=== PATIENT | female | born 1995 | race Hispanic/Latino ===

== ENCOUNTER 2021-03-05 17:24 | Emergency (ER) | payer OTHER ==
[~2021-03-05] VITALS: Ht 160 cm; Wt 114.3 kg
[2021-03-05 17:45] LABS: BASOPHILS % (AUTO) 0.7 % (0.0-5.0); EOSINOPHILS % (AUTO) 2.4 % (0.0-8.0); HEMATOCRIT 42.6 % (36-48); LYMPHOCYTES % (AUTO) 31.2 % (21.0-51.0); MEAN CORPUSCULAR HEMOGLOBIN 27.3 pg (27.0-33.0); MEAN CORPUSCULAR HGB CONC 33.3 g/dL (32.0-36.0); MEAN CORPUSCULAR VOLUME 81.8 fL (79-99); MONOCYTES % (AUTO) 6.1 % (3.0-13.0); NEUTROPHILS % (AUTO) 59.2 % (40.0-77.0); PLATELET COUNT (AUTO) 282 K/uL (130-400); RED BLOOD CELL COUNT(AUTO) 5.21 MIL/uL (4.00-5.50); RED CELL DISTRIBUTION WIDTH 13.4 % (11.0-15.5)
[2021-03-05 17:59] LABS: ALBUMIN 3.6 g/dL (3.5-5.0); BILIRUBIN,TOTAL 0.5 mg/dL (0.2-1.0); CREATININE 0.8 mg/dL (0.5-1.5); POTASSIUM 3.6 mmol/L (3.5-5.1); TOTAL PROTEIN, SERUM 8.2 g/dL (6.0-8.3)
[2021-03-05 20:21] LABS: APPEARANCE,URINE Cloudy (CLEAR); BILIRUBIN,URINE Negative (NEGATIVE); COLOR,URINE Dark Yellow (YELLOW); GLUCOSE, URINE (UA) Negative (NEGATIVE); KETONES,URINE Negative (NEGATIVE); LEUKOCYTE ESTERASE ,URINE Negative (NEGATIVE); NITRATE,URINE Negative (NEGATIVE); OCCULT BLOOD,URINE Negative (NEGATIVE); PH,URINE 5.5 (5.0-8.0); PROTEIN,URINE Negative (NEGATIVE)
[2021-03-05 20:29] LABS: HCG,QUAL RESULT NEGATIVE (NEGATIVE)
[2021-03-05 20:31] LABS: BACTERIA,URINE Few /HPF (None Seen); RBC,URINE 0-1 /HPF (0-1)
[2021-03-05 20:32] LABS: MUCUS,URINE Moderate LPF (None Seen); SQUAMOUS EPITHELIAL CELL,UR Moderate /HPF (0-2)
[2021-03-05] MEDS ORDERED: HYDROCODONE/ACETAMINOPHEN 5/325 MG TAB PO ONE (21:00)
[2021-03-05] MEDS ORDERED: KETOROLAC 30MG VIAL (30MG/ML) IM ONE (21:00)
[2021-03-05 22:00] VITALS: BP 128/72
[2021-03-05] MEDS ORDERED: ACET1TAB25 PO (22:13)
== END 2021-03-05 22:37 | disposition home or self-care (01) ==
LOC: EDH 17:24
DX: N23 Unspecified renal colic (principal); R51.9 Headache, unspecified; J45.909 Unspecified asthma, uncomplicated
CPT/HCPCS: 36415; 74176; 80053; 81001; 81025; 82150; 83690; 85025; 96372; 99284; J1885

== ENCOUNTER 2021-10-28 17:33 | Emergency (ER) | payer OTHER ==
[~2021-10-28] VITALS: Ht 160 cm; Wt 111.1 kg
[~2021-10-28 17:33] MED LIST: ACET-2079 PO
[2021-10-28] MEDS ORDERED: AMOX1TAB16 PO (17:50)
[2021-10-28] MEDS ORDERED: IBUP-2070 PO (17:50)
[2021-10-28] MEDS ORDERED: IBUPROFEN 600 MG TABLET PO ONE (18:00)
[2021-10-28] MEDS ORDERED: AMOX/CLAV 875/125MG TAB PO ONE (18:00)
[2021-10-28 18:16] VITALS: BP 130/65
== END 2021-10-28 18:31 | disposition home or self-care (01) ==
LOC: EDH 17:33
DX: H66.92 Otitis media, unspecified, left ear (principal); J45.909 Unspecified asthma, uncomplicated

== ENCOUNTER 2021-11-04 15:36 | Emergency (ER) | payer OTHER ==
[~2021-11-04] VITALS: Ht 160 cm; Wt 111.1 kg
[~2021-11-04 15:36] MED LIST changes: +AMOX1TAB16 PO; +IBUP-2070 PO
[2021-11-04] MEDS ORDERED: CEFTRIAXONE 1G VIAL IM ONE (16:00)
[2021-11-04] MEDS ORDERED: NEOMYCIN/POLYMYXIN/HC OTIC SUSP 10ML BOTTLE AS SCH (16:00)
[2021-11-04] MEDS ORDERED: ACETAMINOPHEN WITH CODEINE 1 TAB TAB PO ONE (16:00)
[2021-11-04] MEDS ORDERED: LIDOCAINE HCL 1% 10 ML VIAL ONE (16:07)
[2021-11-04] MEDS ORDERED: ACET-2079 PO (16:08)
[2021-11-04] MEDS ORDERED: CLAR-44 PO (16:08)
[2021-11-04 16:22] VITALS: BP 121/78
== END 2021-11-04 16:20 | disposition home or self-care (01) ==
LOC: EDH 15:36
DX: H66.002 Acute suppurative otitis media without spontaneous rupture of ear drum, left ear (principal); J45.909 Unspecified asthma, uncomplicated; E66.01 Morbid (severe) obesity due to excess calories; Z68.41 Body mass index [BMI] 40.0-44.9, adult; Z79.1 Long term (current) use of non-steroidal anti-inflammatories (NSAID)
CPT/HCPCS: 99283; 82948; 96372; J0696; J3490

== ENCOUNTER 2022-02-14 22:07 | Emergency (ER) | payer OTHER ==
[~2022-02-14] VITALS: Ht 160 cm; Wt 111.1 kg
[~2022-02-14 22:07] MED LIST changes: +CLAR-44 PO
[2022-02-14] MEDS ORDERED: ACETAMINOPHEN 500 MG TABLET ONE (23:23)
[2022-02-14] MEDS ORDERED: IBUPROFEN 600 MG TABLET ONE (23:23)
[2022-02-14] MEDS ORDERED: IBUPROFEN 600 MG TABLET PO ONE (23:30)
[2022-02-14] MEDS ORDERED: ACETAMINOPHEN 500 MG TABLET PO ONE (23:30)
[2022-02-14 23:50] VITALS: BP 124/77
== END 2022-02-15 00:07 | disposition home or self-care (01) ==
LOC: EDH 22:07
DX: B34.9 Viral infection, unspecified (principal); J45.909 Unspecified asthma, uncomplicated; Z20.822 Contact with and (suspected) exposure to COVID-19; E66.9 Obesity, unspecified; Z68.41 Body mass index [BMI] 40.0-44.9, adult; Z79.1 Long term (current) use of non-steroidal anti-inflammatories (NSAID)
CPT/HCPCS: 99284; 71045; 87635; 87880; 87804 ×2; 81025; C9803

== ENCOUNTER 2023-03-04 08:22 | Emergency (ER) | payer OTHER ==
[~2023-03-04] VITALS: Ht 160 cm; Wt 111.6 kg
[2023-03-04 08:59] LABS: RAPID GROUP A STREP negative (NEGATIVE)
[2023-03-04] MEDS ORDERED: DiphenhydrAMINE HCL 50 MG/ML VIAL IV ONE (09:00)
[2023-03-04] MEDS ORDERED: KETOROLAC 30MG VIAL (30MG/ML) IVP ONE (09:00)
[2023-03-04] MEDS ORDERED: PROCHLORPERAZINE 10MG/2ML INJ IV ONE (09:00)
[2023-03-04] MEDS ORDERED: LACTATED RINGERS 1000ML 1,000 ML IV ONE (09:00)
[2023-03-04 09:02] LABS: SARS-CoV-2, RNA, NAAT NEGATIVE SARS CoV-2 (NEGATIVE)
[2023-03-04 09:07] LABS: INFLUENZA TYPE A Negative For Type A (NEGATIVE)
[2023-03-04 09:45] LABS: INFLUENZA TYPE B Positive For Type B (NEGATIVE)
[2023-03-04] MEDS ORDERED: DIPHENHYDRAMINE HCL 25 MG CAPSULE PO ONE (10:30)
[2023-03-04] MEDS ORDERED: METOCLOPRAMIDE 10 MG TABLET PO ONE (10:30)
[2023-03-04] MEDS ORDERED: KETOROLAC 30MG VIAL (30MG/ML) IM ONE (10:30)
[2023-03-04] MEDS ORDERED: OSEL75 PO (10:31)
[2023-03-04] MEDS ORDERED: IBUP-2070 PO (10:31)
[2023-03-04] MEDS ORDERED: METO5 PO (10:31)
[2023-03-04 11:09] VITALS: BP 137/78; PULSE 78; RESP 16; O2SAT 97
== END 2023-03-04 11:09 | disposition home or self-care (01) ==
LOC: EDH 08:22
DX: J10.1 Influenza due to other identified influenza virus with other respiratory manifestations (principal); G43.909 Migraine, unspecified, not intractable, without status migrainosus; J45.909 Unspecified asthma, uncomplicated; E66.9 Obesity, unspecified; Z20.822 Contact with and (suspected) exposure to COVID-19; Z79.899 Other long term (current) drug therapy; Z98.890 Other specified postprocedural states
CPT/HCPCS: 99284; 96374; 96375; 87635; 96361; 87880; 87804 ×2; C9803; J7120; J1200; J0780; J1885

== ENCOUNTER 2024-06-23 22:47 | Emergency (ER) | payer BC ==
[~2024-06-23] VITALS: Ht 160 cm; Wt 122.9 kg
[~2024-06-23 22:47] MED LIST changes: +METO5 PO; +OSEL75 PO
[2024-06-24] MEDS: 0.9%NACL 1000ML 1,000 ML IV ONE (00:17)
[2024-06-24] MEDS: DiphenhydrAMINE HCL 50 MG/ML VIAL IV ONE (00:17)
[2024-06-24 00:22] LABS: BASOPHILS # (AUTO) 0.06 K/uL (0.00-0.20); BASOPHILS % (AUTO) 0.5 % (0.0-5.0); EOSINOPHILS # (AUTO) 0.06 K/uL (0.00-0.70); EOSINOPHILS % (AUTO) 0.5 % (0.0-8.0); HEMATOCRIT 37.8 % (36-48); IMMATURE GRANULOCYTE ABSOLUTE 0.02 K/uL (0-1); LYMPHOCYTES # (AUTO) 3.8 K/uL (1.0-4.8); LYMPHOCYTES % (AUTO) 32.9 % (21.0-51.0); MEAN CORPUSCULAR HGB CONC 33.6 g/dL (32.0-36.0); MEAN CORPUSCULAR VOLUME 80.4 fL (79-99); MONOCYTES # (AUTO) 0.6 K/uL (0.1-1.0); NEUTROPHILS % (AUTO) 60.9 % (40.0-77.0); PLATELET COUNT (AUTO) 288 K/uL (130-400); RED CELL DISTRIBUTION WIDTH 14.3 % (11.0-15.5); WHITE BLOOD COUNT (AUTO) 11.4 K/uL (4.8-10.8)
[2024-06-24 00:24] VITALS: BP 146/91; PULSE 83; RESP 20; TEMP 98.6; O2SAT 100
[2024-06-24 00:55] LABS: CREATININE 0.9 mg/dL (0.5-1.0); POTASSIUM 3.4 mmol/L (3.5-5.1)
--- NOTE | 2024-06-24 01:15 | ERN ---
General Chief Complaint: Numbness Stated Complaint: C/O NUMBNESS W/HEAVINESS TO LEFT ARM Time Seen by MD: 23:48 Time Seen by Midlevel: 23:48 Source: patient History of Present Illness Initial Comments Patient is a 29-year-old female with no significant past medical history presenting to the emergency department with chest pain that was followed by numbness and heaviness to the left arm. Patient states her symptoms started at 7:00 p.m. today. 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 She states she was told that she was going to be killed. Her symptoms developed shortly after. Police report was filed. On arrival with the patient states her symptoms improved but wanted further evaluation. Allergies: Coded Allergies: No Known Drug Allergies (Unverified Allergy, Unknown, 03/05/21) Home Meds Active Scripts Metoclopramide HCl (Reglan) 5 Mg Tab, 5 MG PO Q6HPRN PRN for NAUSEA/VOMITING, #20 TAB Prov:ANIKET LOPEZ MD 03/04/23 Ibuprofen (Ibuprofen) 600 Mg Tablet, 600 MG PO Q6H PRN for PAIN, #20 TAB Prov:ANIKET LOPEZ MD 03/04/23 Oseltamivir Phosphate (Tamiflu) 75 Mg Cap, 75 MG PO BID for 5 Days, #10 CAP Prov:ANIKET LOPEZ MD 03/04/23 Acetaminophen with Codeine (Acetaminophen-Cod #3 Tablet) 1 Each Tablet, 1-2 TAB PO Q6H PRN for left otitis media/otalgia, #20 TAB Prov:GENIE SQUIRES 11/04/21 Clarithromycin (Clarithromycin) 500 Mg Tablet, 500 MG PO BID for 10 Days, #20 TAB Prov:GENIE SQUIRES 11/04/21 Ibuprofen (Ibuprofen) 600 Mg Tablet, 600 MG PO Q6H PRN for PAIN, #14 TAB Prov:DEREK JASMINE 10/28/21 Amoxicillin/Potassium Clav (Amox Tr-K Clv 875-125 mg Tab) 1 Each Tablet, 1 EACH PO BID, #14 TAB Prov:DEREK JASMINE 10/28/21 Acetaminophen with Codeine (Acetaminophen-Cod #3 Tablet) 1 Each Tablet, 1 EACH PO QID, #20 TAB Prov:SUSHMA HAMMOND MD 03/05/21 Past Medical History Past Medical History: No Pertinent History Medical History Other: Obesity Past Surgical History: Unknown Surgical History Other: D & C Family History Family History: Negative Social History Social History: Negative ROS Dictation CONSTITUTIONAL: Negative except for HPI HEAD/FACE: Negative except for HPI EENT: Negative except for HPI RESPIRATORY: Negative except for HPI GASTROINTESTINAL/ABDOMINAL: Negative except for HPI GENITOURINARY: Negative except for HPI MUSCULOSKELETAL: Negative except for HPI INTEGUMENTARY: Negative except for HPI NEUROLOGICAL/PSYCH: Negative except for HPI HEMATOLOGIC/LYMPHATIC: Negative except for HPI All Systems Negative, Except as noted above. 13 point review of systems assessed and all negative except for above. Physical Exam Physical Exam Dictation Vital Signs reviewed General Appearance: Alert, oriented x 3, no acute distress, well developed, nourished. Head and Face: non-traumatic. Eyes: PERRL, pink conjunctivas, eyelid no trauma, anterior chamber with arcus senilis. Ears: Pinnas intact and no signs of trauma or erythema ear canals clear and no discharge TM no erythema Nose: No discharge, no bleeding. Oropharynx: Mouth normal, tongue pink, pharynx clear,no erythema, tonsils no exudates, no abscesses noted, mucous membrane moist Neck: Supple, non-tender, no thyromegaly, no masses, no JVD, no bruits Breast:Deferred Chest:No tenderness, no crepitus, no paradoxical movement, no retractions Lungs:Clear, well-ventilated, symmetric, no rales, no wheezing, no rhonchi, no stridor, good breath sounds bilaterally Heart: Regular rate, regular rhythm, no murmur, no gallops Vascular: no peripheral edema, Abdomen: Soft, positive bowel sounds, nondistended, no guarding, nontender, no rebound, no masses no hepatomegaly, no splenomegaly, no Aguilar's sign, no hernias. Rectal: Deferred Genital: Deferred Neurological: Normal speech, motor function intact, sensory function intact Musculoskeletal: Neck nontender, full range of motion, back nontender, full range of motion, Extremities: nontender, full range of motion Skin: Color pink, dry, no turgor, no rash, no lacerations, no abrasions, no contusions. Lymphatic: Deferred Results Laboratory and Microbiology Lab and Micro Result Laboratory Tests Test 06/24/24 00:13 White Blood Count 11.4 K/uL (4.8-10.8) H Red Blood Count 4.70 MIL/uL (4.00-5.50) Hemoglobin 12.7 g/dL (12.0-16.0) Hematocrit 37.8 % (36-48) Mean Corpuscular Volume 80.4 fL (79-99) Mean Corpuscular Hemoglobin 27.0 pg (27.0-33.0) Mean Corpuscular Hemoglobin Concent 33.6 g/dL (32.0-36.0) Red Cell Distribution Width 14.3 % (11.0-15.5) Platelet Count 288 K/uL (130-400) Mean Platelet Volume 11.1 fL (7.5-10.5) H Immature Granulocyte % (Auto) 0.2 % (0-1) Neutrophils (%) (Auto) 60.9 % (40.0-77.0) Lymphocytes (%) (Auto) 32.9 % (21.0-51.0) Monocytes (%) (Auto) 5.0 % (3.0-13.0) Eosinophils (%) (Auto) 0.5 % (0.0-8.0) Basophils (%) (Auto) 0.5 % (0.0-5.0) Neutrophils # (Auto) 7.0 K/uL (1.8-7.7) Lymphocytes # (Auto) 3.8 K/uL (1.0-4.8) Monocytes # (Auto) 0.6 K/uL (0.1-1.0) Eosinophils # (Auto) 0.06 K/uL (0.00-0.70) Basophils # (Auto) 0.06 K/uL (0.00-0.20) Absolute Immature Granulocyte (auto 0.02 K/uL (0-1) Nucleated Red Blood Cells 0.0 % (0.0-0.19) Sodium Level 140 mmol/L (136-145) Potassium Level 3.4 mmol/L (3.5-5.1) L Chloride Level 101 mmol/L (101-111) Carbon Dioxide Level 35 mmol/L (21-32) H Blood Urea Nitrogen 12 mg/dL (7-18) Creatinine 0.9 mg/dL (0.5-1.0) Glomerular Filtration Rate Calc 88 mL/min (>90) Random Glucose 152 mg/dL (70-105) H Total Calcium 8.9 mg/dL (8.5-10.1) Troponin I High Sensitivity 6 ng/L (4-50) Serum Test, Qualitative NEGATIVE (NEGATIVE) Labs Reviewed?: Yes MDM MDM: Patient is a 29-year-old female with no significant past medical history presenting to the emergency department with chest pain that was followed by numbness and heaviness to the left arm. Patient states her symptoms started at 7:00 p.m. today. 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 She states she was told that she was going to be killed. Her symptoms developed shortly after. Police report was filed. On arrival with the patient states her symptoms improved but wanted further evaluation. On physical examination initial vital signs are stable. Patient is anxious appearing. Cardiac workup was initiated. EKG shows normal sinus rhythm with no ST elevations or bundle branch blocks. CBC and chemistries are stable. Cardiac enzymes are negative. Chest x-ray shows no acute cardiopulmonary process. Symptoms most likely an an xiety reaction. Patient went three traumatic event. Her life was threatened. A police report has already been filed. The patient was observed in the ER for over2 hours and has remained stable and asymptomatic. Patient will be discharged home Differential diagnosis: Anxiety reaction, ACS, dehydration, electrolyte abnormality There are no social concerns with this patient. Prescription drug management Prescriptions will include: None Medical management and examination interpretation discussions were had by me with other qualified healthcare professionals as indicated for the patient's care. ED Course Orders Procedure Category Date Status Time 12 Lead Ekg Tracing- EKG 06/23/24 Complete Technical 22:52 Cbc With Differential LAB 06/23/24 Complete 23:49 Basic Metabolic Panel LAB 06/23/24 Complete 23:49 Troponin I High LAB 06/23/24 Complete Sensitivity 23:49 Testing, LAB 06/23/24 Complete Serum Hcg 23:49 Chest 1vw RAD 06/23/24 Resulted 23:49 0.9%Nacl 1000ml (Ns PHA 06/24/24 Complete 1000ml) 00:00 Diphenhydramine Hcl PHA 06/24/24 Complete (Benadryl Inj) 00:00 12 Lead Ekg Tracing- EKG 06/24/24 Complete Technical 00:21 Current Medications Medications (Trade) Dose Ordered Sig/Sarah Route PRN Reason Start Time Stop Time Status Last Admin Dose Admin Diphenhydramine HCl (BENAdryl INJ) 25 mg ONCE ONCE IV 06/24/24 00:00 06/24/24 00:01 DC 06/24/24 00:17 Sodium Chloride 1,000 ml @ 0 mls/hr ONCE ONCE IV 06/24/24 00:00 06/24/24 00:01 DC 06/24/24 00:17 Vital Signs Date Time Temp Pulse Resp B/P (MAP) Pulse Ox O2 Delivery O2 Flow Rate FiO2 06/24/24 00:24 98.6 83 20 146/91 100 Room Air* 0 21 06/23/24 23:04 98.6 90 20 148/70 100 Room Air* 0 21 06/23/24 22:48 98.1 74 20 142/81 98 Room Air [place] [id number] [place] [id number] IMAGING REPORT Signed PATIENT: HUMPHREY ESPINOZA MR#: [id number] : 1995 SEX: F AGE: 29 LOCATION: [facility] ORDER [id number] STATUS: [facility] REPORT#: [id number] SERVICE [id number] REASON: sob ORDERING PHYSICIAN: IVÁN MARTIN PROCEDURE: CXR1VW - CHEST 1VW PORTABLE CHEST RADIOGRAPH INDICATION: sob COMPARISON: 02/14/2022 FINDINGS: Heart size is normal. The pulmonary vascularity and liban appear normal. No abnormal pulmonary parenchymal opacity or consolidation identified. No significant pleural effusion noted. No pneumothorax detected. IMPRESSION: No radiographic evidence for any acute cardiopulmonary process. DICTATED BY: LAURA TREVIÑO MD DATE: 06/24/24 1006 ELECTRONICALLY SIGNED BY: LAURA TREVIÑO MD DATE: 06/24/24 1011 HEART Score Response (Comments) Value History: Low suspicion (0) 0 EKG: Normal 0 Age: < 45yrs (0) 0 Risk Factors: No known risk factors (0) 0 Initial Troponin: Normal limit (0) 0 HEART Score Risk: Low Risk for MACE (1-3) Total 0 DX & DISP Disposition: Discharge Departure Impression: Primary Impression: Anxiety reaction Condition: Stable Additional Instructions: Your blood work today is unremarkable. Your cardiac enzymes are negative. Your EKG shows no evidence of a heart attack. Your chest x-ray is normal. Your symptoms are most likely related to the traumatic event you experienced earlier today. Please follow up with your primary care doctor in 2-3 days for repeat evaluation. Referrals: ANNE WHITE (PCP) I have reviewed the case, and I agree with, Diagnosis and Plan I performed the substantive portion of the visit. I have reviewed and personally made and approve the management plan that is documented in the note by myself or the SATHYA. I acknowledge for responsibility for the patient's management plan. IVÁN MARTIN Jun 24, 2024 01:15
--- NOTE | 2024-06-24 07:45 | EKG ---
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
--- NOTE | 2024-06-24 07:48 | EKG ---
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
--- NOTE | 2024-06-24 10:11 | HMCIMG ---
PORTABLE CHEST RADIOGRAPH INDICATION: sob COMPARISON: 02/14/2022 FINDINGS: Heart size is normal. The pulmonary vascularity and liban appear normal. No abnormal pulmonary parenchymal opacity or consolidation identified. No significant pleural effusion noted. No pneumothorax detected. IMPRESSION: No radiographic evidence for any acute cardiopulmonary process.
== END 2024-06-24 01:19 | disposition home or self-care (01) ==
LOC: EDH 22:47
DX: F41.1 Generalized anxiety disorder (principal); E66.9 Obesity, unspecified; Z68.42 Body mass index [BMI] 45.0-49.9, adult
CPT/HCPCS: 99284; 71045; 84484; 80048; 84703; 85025; 36415; 93005 ×2; 96374; 96361; J1200; J7030